=== PATIENT | female | born 1990 | race Two or more races ===

== ENCOUNTER 2019-12-08 18:55 | Emergency (ER) | payer SELFPAY ==
[~2019-12-08] VITALS: Ht 165.1 cm; Wt 72.7 kg
[2019-12-08] MEDS ORDERED: ACETAMINOPHEN 500 MG TABLET PO ONE (19:30)
[2019-12-08] MEDS ORDERED: PRED50TA PO (21:33)
--- NOTE | 2019-12-08 21:34 | PHYS DOC ---
Past Medical History Past Medical History: No Pertinent History, Asthma Past Surgical History: No Surgical History Smoking Status: Never Smoker Alcohol Use: None General Adult EDM: Chief Complaint: SKIN PROBLEM HPI: HPI: Patient is a 29 year old female who presents to the emergency department with complaints of a rash all over her body since 1300 yesterday. Patient states the rash is itchy and rouse. She reports that it started after she had been painti ng yesterday but but denies getting any pain at on her body. She denies any new medications, detergents, soaps, or fragrances. She denies any recent yard work. The patient states that she tried taking Benadryl and haer-wqh-bvgrtst anti- itch spray with little relief in her symptoms. Patient also reports that she has been exposed to a person who tested positive with COVID-19 and was informed yesterday. Patient denies any fever, shortness of breath, cough, sore throat, body aches, headache, fatigue, nausea, vomiting, diarrhea, abdominal pain, chest pain, or palpitations. She denies any wheezing, difficulty swallowing, or difficulty breathing. On arrival the patient denies any pain. The cafe server phone line was used to talk with the patient and she was Czech-speaking only. Review of Systems: Review of Systems: Complete review of systems is negative unless otherwise documented in the HPI. Heart Score: Risk Factors: Risk Factors: DM, Current or recent (<one month) smoker, HTN, HLP, family history of CAD, obesity. Risk Scores: Score 0 - 3: 2.5% MACE over next 6 weeks - Discharge Home Score 4 - 6: 20.3% MACE over next 6 weeks - Admit for Clinical Observation Score 7 - 10: 72.7% MACE over next 6 weeks - Early Invasive Strategies Current Medications: Current Medications Medications (Trade) Dose Ordered Sig/Robbi Start Time Stop Time Status Last Admin Dose Admin Acetaminophen (Tylenol) 1,000 mg 1X ONCE 12/08/19 19:30 12/08/19 19:34 DC 12/08/19 19:50 1,000 MG Allergies: Allergies: Allergies Coded Allergies Type Severity Reaction Last Updated Verified No Known Drug Allergies 12/08/19 No Physical Exam: PE: Constitutional: Well developed, well nourished, no acute distress, non-toxic appearance. [] HENT: Normocephalic, atraumatic, bilateral external ears normal, nose normal. [] Eyes: PERRLA, EOMI, conjunctiva normal, no discharge. [] Neck: Normal range of motion, no stridor. [] Cardiovascular:Heart rate regular rhythm Lungs & Thorax: Respirations even and unlabored, no retractions, no respiratory distress, lungs clear in all hawkins, no wheezing Skin: Warm, dry; scattered red raised rash without vesicles, consistent with a contact dermatitis noted to face, trunk, and extremities x4 Extremities: No cyanosis, ROM intact, no edema. [] Neurologic: Alert and oriented X 3, no focal deficits noted. [] Psychologic: Affect normal, judgement normal, mood normal. [] Current Patient Data: Vital Signs: Vital Signs Date Time Temp Pulse Resp B/P (MAP) Pulse Ox O2 Delivery O2 Flow Rate FiO2 12/08/19 21:04 108 16 118/60 (79) 98 Room Air 12/08/19 19:11 100.2 100.2 EKG: EKG: [] Radiology/Procedures: Radiology/Procedures: [] Course & Med Decision Making: Course & Med Decision Making Pertinent Labs and Imaging studies reviewed. (See chart for details) [] Dragon Disclaimer: DragThe Old Reader Disclaimer: This electronic medical record was generated, in whole or in part, using a voice recognition dictation system. Departure Departure Impression: Primary Impression: Contact dermatitis Qualified Codes: L23.9 - Allergic contact dermatitis, unspecified cause Additional Impressions: Suspected COVID-19 virus infection Person under investigation for COVID-19 Disposition: HOME, SELF-CARE Condition: STABLE Referrals: NO PCP (PCP) Patient Instructions: Contact Dermatitis, [id number] Additional Instructions: Definicin Se le realiz la prueba de deteccin del COVID-19 o se le diagnostic dicha enfermedad. Es yi infeccin ocasionada por un nuevo tipo de coronavirus. En la mayora de los casos, el COVID-19 provoca sntomas similares a los del resfriado. En algunas personas, puede ocasionar sntomas ms graves, nila problemas respiratorios. No existe un tratamiento para el virus COVID-19. El cuerpo elimina la infeccin con el tiempo. El cuidado personal ayuda a aliviar el malestar. Pasos que debe seguir 1. Cuidados personales Descanse cuando sea necesario. Los hbitos saludables pueden ayudarlo a sentirse mejor. Algunas medidas para lograr cambios incluyen lo siguiente: - Elija alimentos saludables, nila frutas y verduras. Kathy abundante cantidad de agua dede todo el da. - Duerma malik por la noche. - Si fuma, intente no hacerlo. [place] ayudar a mejorar la respiracin. - Evite el alcohol. 2. Mantenga sanos a los dems El virus puede contagiarse a otras personas. Cada vez que estornuda o tose, se liberan gotitas. Las gotitas pueden entrar en la boca, la nariz o los ojos de las personas que se encuentran cerca de usted y ocasionar la infeccin. Para reducir las probabilidades de contagiar el virus COVID-19 a otros, tenga en cuenta lo siguiente: - Qudese en casa el tiempo que el mdico se lo indique. Es posible que deba quedarse en casa hasta que la enfermedad desaparezca. Salga nicamente para recibir atencin mdica o en rosemary de urgencia. - Evite las reas pblicas, los eventos o el transporte pblico. No reanude las actividades laborales o escolares hasta que el mdico lo autorice. - Llame previamente si necesita asistir a un centro mdico. Avise que es posible que haya contrado COVID-19. [place] ayudar a que le indiquen adonde debe dirigirse. Tambin pueden pedirle que use yi mscara facial cuando vaya al consultorio. Si llama a los servicios de asistencia mdica de urgencias, avseles que es posible que haya contrado COVID-19. Mientras est en casa: - Evite el contacto directo con otras personas. Mantngase a yi distancia aproximada de 2 metros. Si es posible, pasen la mayor parte del tiempo en [place] separadas. - Use yi mscara facial si estar en contacto directo con otras personas, por ejemplo, si compartir yi habitacin o un vehculo. - Pida a alguien que limpie las superficies comunes de la casa. Limpie picaportes, mesadas y lavamanos con limpiadores domsticos todos los frances. - Al toser o estornudar, cbrase con un pauelo de papel. Despus de usarlo, deschelo de inmediato. Si no tiene un pauelo de papel, tosa o estornude en el pliegue del codo. - Lvese las celi con frecuencia. Lvese las celi despus de estornudar o toser. Lvese con agua y jabn dede, al menos, 20 segundos. Si no dispone de agua y jabn, use un limpiador de celi a base de alcohol. - No cocine para otros. Evite compartir objetos personales, nila tenedores, cucharas o cepillos de dientes. - Mientras est enfermo, evite el contacto directo con las mascotas. No hay indicios de si el virus se transmite a las mascotas. Esta es yi medida de seguridad que debe t enerse en cuenta hasta que se sepa ms acerca de marbin virus. El aislamiento puede ser frustrante. La interaccin social puede ayudar. Mantngase en contacto con amigos y familiares por telfono u otros medios tecnolgicos. Puede interactuar con otras personas en el hogar, evelin mantenga yi distancia hills de aproximadamente 2 metros. Seguimiento Las pruebas para confirmar la presencia del COVID-19 pueden demorar algunos frances. Es posible que deba seguir los pasos mencionados anteriormente hasta que estn los resultados de las pruebas. Lo llamarn del consultorio mdico para saber si berry habido algn cambio en tabares kathie. [place] le avisarn cuando pueda volver a estar cerca de otras personas. Problemas a los que debe estar atento Comunquese con el mdico si no se recupera segn lo previsto o si tiene problemas nila los siguientes: - Dificultad para respirar - Dolor de pecho - Empeoramiento de los sntomas Si shantell que tiene yi urgencia, llame a los servicios de asistencia mdica de urgencias de inmediato. As taken from [employer] Prednisone (PREDNISONE) 50 Mg Tablet 1 TAB PO DAILY for 5 Days, #5 TAB 0 Refills Prov: MICHELLE PORTER REGISTERED ASSOCIATE 12/08/19 Justicifation of Admission Dx: Justifications for Admission: Justification of Admission Dx: N/A MICHELLE PORTER REGISTERED ASSOCIATE Dec 08, 2019 21:34
[2019-12-08 21:37] VITALS: BP 120/70
== END 2019-12-08 21:40 | disposition home or self-care (01) ==
LOC: ER 18:55
DX: L23.9 Allergic contact dermatitis, unspecified cause (principal); U07.1 COVID-19; J45.909 Unspecified asthma, uncomplicated
CPT/HCPCS: 99285; C9803; U0003